=== PATIENT | male | born 1990 | race Asian ===

== ENCOUNTER 2020-07-06 06:40 | Emergency (ER) | payer SELFPAY ==
[~2020-07-06] VITALS: Ht 167.6 cm; Wt 70.3 kg
[2020-07-06 06:45] VITALS: BP 134/97
--- NOTE | 2020-07-06 06:45 | NUR ---
TO TENT #01 AMBULATORY
--- NOTE | 2020-07-06 06:58 | NUR ---
SEEN AND EXAMINED BY SHA WITH ORDERS AND CARRIED OUT.
[2020-07-06 07:38] VITALS: BP 134/97
--- NOTE | 2020-07-06 07:38 | NUR ---
ALEXX SWABBED AND SENT TO LAB
--- NOTE | 2020-07-06 07:38 | NUR ---
Patient discharged with v/s stable. Written and verbal after care instructions given and explained. Patient verbalized understanding. Ambulatory with steady gait. All questions addressed prior to discharge. Advised to follow up with PMD.
== END 2020-07-06 07:38 | disposition home or self-care (01) ==
LOC: MED 06:40 → EDSEX 06:40 → MED 07:38
DX: U07.1 COVID-19 (principal); J06.9 Acute upper respiratory infection, unspecified; R05 Cough; J02.9 Acute pharyngitis, unspecified
CPT/HCPCS: 99283; U0003